=== PATIENT | male | born 1965 | race Caucasian/White ===

== ENCOUNTER → 2017-08-19 | Outpatient (CLI) | payer OTHER ==
--- NOTE | 2017-08-19 16:23 | RADIOLOGY REPORT (SQ) ---
EXAM DESCRIPTION: MRI LUMBAR SPINE WITHOUT COMPLETED DATE/TIME: 08/19/2017 2:36 pm REASON FOR STUDY: DDD AND LOW BACK PAIN (M54.5) M54.5 LOW BACK PAIN COMPARISON: None. TECHNIQUE: Sagittal and Axial imaging includes T1, T2, STIR and gradient echo sequences. Coronal T2/ HASTE imaging. LIMITATIONS: None. FINDINGS: VISUALIZED UPPER ABDOMEN: Limited evaluation. No acute or suspicious findings suggested. SEGMENTATION: No transitional anatomy. The lowest well-developed disc space is labeled L5-S1. ALIGNMENT: Anatomic. VERTEBRAE: Intact. BONE MARROW: Normal. No marrow replacement or reactive changes. DISC SIGNAL: Normal. No significant abnormal signal or loss of height. POSTERIOR ELEMENTS: Generally intact. No pars defect evident. HARDWARE: None in the spine. CORD AND CONUS: Normal in size and signal intensity. Conus at the L1-2 level. SOFT TISSUES: No aortic aneurysm seen. No bulky retroperitoneal adenopathy or mass. No paraspinal mas s or fluid. T11-12: No central or foraminal stenosis. Mild bilateral facet hypertrophy. T12-L1: No central or foraminal stenosis. Mild bilateral facet hypertrophy L1-L2: No central or foraminal stenosis. Mild bilateral facet hypertrophy L2-L3: No significant spinal stenosis or exit foraminal stenosis. L3-L4: No central or foraminal stenosis. Mild bilateral facet hypertrophy. L4-L5: No central or foraminal stenosis. Mild bilateral facet hypertrophy. L5-S1: No central or foraminal stenosis. Moderate right, mild left facet hypertrophy. SACRUM: Visualized upper sacrum intact. OTHER: No other significant findings. IMPRESSION: Multilevel facet arthropathy. No significant central or foraminal encroachment. No dis c protrusion/herniation TECHNICAL DOCUMENTATION: JOB ID: [id number] [employer]- All Rights Reserved Reading location - IP/workstation name: [email or web address]
== END ==
LOC: RAD 13:50
PROVIDERS: ATTEND Family Medicine
DX: M51.86 Other intervertebral disc disorders, lumbar region (principal); M54.5 Low back pain
CPT/HCPCS: 72148